=== PATIENT | female | born 1990 | race Caucasian/White ===

== ENCOUNTER 2017-06-13 15:08 | Emergency (ER) | payer SELFPAY | END 2017-06-13 15:32 | disposition left against medical advice (07) | LOC: PHED 15:08 | DX: R51 Headache (principal); Z53.21 Procedure and treatment not carried out due to patient leaving prior to being seen by health care provider | CPT/HCPCS: 99281 ==

== ENCOUNTER 2018-03-22 08:30 | Inpatient (IN) ==
[2018-03-22] MEDS ORDERED: ceFAZolin 2 GM Premix Inj 2 GM/50 ML PIGGYBACK IV.SIG PRN (08:48)
--- NOTE | 2018-03-22 08:58 | P.HPOB ---
Chief Complaint: I am here for a History of Present Illness: 27-year-old final EDC 04/04/2018 at 38 weeks presents for due to persistent breech and oligohydramnios. Late onset of care in the third trimester. care with Dr. Terrazas. Persistent breech presentation by ultrasound grade 3 placenta and to date patient has not had RhoGam. Past OB history denies Past COREMAKER HELPER history denies Past medical history bipolar Previous tobaccoism Allergies Lamictal and Depakote Past surgical history denies Weeks Gestation:: 38 Para: 0 : 1 Review of Systems All other systems reviewed negative except as stated in HPI Exam Narrative: GENERAL: Well-nourished, well-developed patient. SKIN: Warm and dry. HEAD: Normocephalic and atraumatic. EYES: No scleral icterus. No injection or drainage. ENT: No nasal drainage noted. Mucous membranes pink. Airway patent. NECK: Supple, trachea midline. No JVD. CARDIOVASCULAR: Regular rate and rhythm without murmurs, gallops, or rubs. RESPIRATORY: Breath sounds equal bilaterally. No accessory muscle use. BREASTS: Bilateral exam showed no masses , no retractions, no nipple discharge. ABDOMEN/GI: Abdomen soft, non-tender, bowel sounds present, no rebound, no guarding Gravid to 38 weeks size Fundal Height: 36 GENITOURINARY: cx post 1/thick/high/breech confirmed by US FHT's: 135 reactive NST Reports good movement EXTREMITIES: No cyanosis or edema. BACK: Nontender without obvious deformity. No CVA tenderness. NEUROLOGICAL: Awake and alert. Motor and sensory grossly within normal limits. Five out of 5 muscle strength in all muscle groups. Normal speech. Assessment and Plan - Diagnosis (1) Breech presentation Code(s): O32.1XX0 - Maternal care for breech presentation, not applicable or unspecified Status: Acute (2) consult Code(s): Z71.89 - Other specified counseling Status: Acute (3) 38 weeks gestation of Code(s): Z3A.36 - 36 weeks gestation of Status: Acute - Plan Scheduled for delivery March 22, 2018 at 10:30 AM alternatives benefits complications discussed including but not limited to risk of permanent injury to the bowel bladder nerves blood vessels ureters any structures in the abdomen or pelvis infection hemorrhage morbidity mortality related to surgery and/or anesthesia related procedures, even the remote possibility of . Maternal injury , injury complications associated with such discussed in depth. Patient expressed verbal understanding she was also made aware of the preop expectations Intra-Op and postop. Patient given written instruction as well
[2018-03-22] MEDS ORDERED: Citric Acid/Sodium Citrate Liq 30 ML UDC PO SCH (09:00)
[2018-03-22 09:45] LABS: Baso % (Auto) 0.4 % (0.0-2.0); Eos # (Auto) 0.2 th/mm3 (0.0-0.4); Eos % (Auto) 1.3 % (0.0-4.0); Hemoglobin 11.5 gm/dL (11.6-15.3); Lymph # (Auto) 1.5 th/mm3 (1.0-4.8); Lymph % (Auto) 12.1 % (9.0-44.0); Mean Corpuscular HGB Conc 33.9 % (32.0-36.0); Mean Corpuscular Hemoglobin 30.3 pg (27.0-34.0); Mean Corpuscular Volume 89.4 fL (80.0-100.0); Mean Platelet Volume 8.4 fL (7.0-11.0); Mono # (Auto) 0.7 th/mm3 (0.0-0.9); Mono % (Auto) 5.6 % (0.0-8.0); Neut # (Auto) 9.7 th/mm3 (1.8-7.7); Neut % (Auto) 80.6 % (16.0-70.0); Platelet Count 268 th/mm3 (150-450); Red Blood Count 3.81 mil/mm3 (4.00-5.30); Red Cell Distribution Width 14.1 % (11.6-17.2)
[2018-03-22] MEDS ORDERED: Morphine Sulfate PF Inj 5 MG/10 ML Ampul ONE (09:46)
[2018-03-22 09:55] LABS: Bacteria,Urine Rare /hpf; Bilirubin,Urine Negative (Negative); Clarity,Urine Hazy (Clear); Color,Urine Yellow (Yellw/Straw); Glucose,Urine (UA) Negative (Negative); Leukocyte Esterase,Urine Negative (Negative); Mucus,Urine Few /lpf (Occasional); Nitrite,Urine Negative (Negative); Specific Gravity,Urine 1.015 (1.002-1.035); Squamous Epithelial Cell,Urine 1 /hpf (0-5)
[2018-03-22] MEDS ORDERED: Acetaminophen 325 MG Tablet PO PRN (11:36)
[2018-03-22] MEDS ORDERED: fentaNYL Citrate Inj 100 MCG/2 ML Ampul ONE ×2 (11:48)
--- NOTE | 2018-03-22 11:51 | P.OP ---
- Preoperative Diagnosis (1) Breech presentation (2) 38 weeks gestation of (3) Oligohydramnios Date of procedure: 03/22/19 Procedure: Procedure: Primary LTCS via pfannanstiel incision Preop diagnosis: at 38 1/7wks, Breech, Oligo ERVIN 4.92, Late PNC, RH negative Post Op Diagnosis: same Findings: VFI, apgars 8/8, BW 6lb. 14oz., Orlin Breech Complications: bleeding abrasion/laceration on the uterine serosa Indication: At the routine OB visit on 03/18 patient was found to have an ERVIN of 4.92 and Breech presentation. It was then determined that a primary section would be scheduled for well-being. Patient was advised of the risks of surgery including but not limited to visceral and vascular injury, infection, blood loss and need for transfusion, prolonged hospitalization, and reoperation. The Patient desired to proceed, all questions were answered and consents were signed. Procedure: Patient was taken to the OR with IV fluids running, Ancef was given for infection prophylaxis. Patient was prepped and draped in the dorsal supine position with a leftward tilt. Spinal anesthesia was found to be adequate. A Pfannenstiel incision was made with a scalpel, the incision was followed down to the fascia with the scalpel. The fascia was incised bluntly and extended laterally. Carlos A clamps were used to grasp the anterior aspect of the fascia and the scalpel was used to dissect the fascia off of the muscles. In a similar fashion the inferior aspect of the fascia was grasped with Carlos A clamps and the fascia was dissected bluntly off of the muscles. The rectus muscle was in the midline down to the pubic symphysis. The peritoneal cavity was entered bluntly with no adherent bowel and clear fluid noted. The bladder blade was inserted and the bladder flap was created. The bladder blade was then repositioned to keep bladder out of the operative field. A transverse incision was made in the lower uterine segment with the scalpel with no amniotic fluid noted, the incision was extended bluntly with lateral and upward traction. The infant was in orlin breech presentation and delivered in normal breech fashion ( the hips were delivered first followed by delivery of the trunk, the baby was then rotated with delivery of the right shoulder then delivery of the left shoulder, the head was then flexed the head by putting pressure on the mandible and the head was delivered without difficulty). The cord was clamped and cut after delayed cord clamping for 45 seconds. The was handed off to the pediatric team. The placenta was delivered with manual extraction. A moist lap sponge was used to remove any remaining placental debris. The uterine incision was closed with 1-[address] a CT in a running locked fashion. Dr. Westbrook took over the case at this point to assist with closure. An abrasion/laceration was found to be bleeding on the anterior uterus , in the serosa and inferior to the fundus, chromic suture was used for hemostasis. A second imbricated layer closure was performed on the uterine incision to decrease the risk of future uterine rupture with 1-[address] in a running fashion. The uterine incision as well as the uterine abrasion was noted to have good hemostasis. The uterus, fallopian tubes, and ovaries were noted to be normal and placed back into the abdominal cavity. Upon reinspection good hemostasis of the uterine incision and the previous abrasion was once again noted. Interceed was placed over the abrasion on the serosa. The fascia was closed with 1-[address] in a running fashion. The skin was closed with 3-0 Monocryl on a Dusty in a subcuticular fashion. A pressure dressing was placed over the skin incision. The patient tolerated the procedure well, all counts were correct x2. The patient was taken to recovery in stable condition. Anesthesia: spinal Surgeon: MD Dr. Ansley Boss Estimated blood loss (mL): 700 IV fluids (mL): 2,000 Urine output (mL): 300 (clear)
[2018-03-22] MEDS ORDERED: Oxytocin 30 Units/500ml Premix 30 UNITS/500 ML BAG IV.SIG ONE (12:00)
[2018-03-22] MEDS ORDERED: Oxytocin 30 Units/500ml Premix 30 UNITS/500 ML BAG ONE (12:46)
[2018-03-22] MEDS ORDERED: Oxytocin 30 Units/500ml Premix 30 UNITS/500 ML BAG IV.SIG PRN (16:36)
--- NOTE | 2018-03-22 18:38 | US ---
EXAM DATE: 03/22/2018 6:36 PM EST AGE/SEX: 27 years / Female INDICATIONS: Right leg pain and swelling. CLINICAL DATA: This is the patient's initial encounter. Patient reports that signs and symptoms have been present for 1 day and indicates a pain score of 1/10. MEDICAL/SURGICAL HISTORY: . Right leg swelling. None. COMPARISON: No prior exams available for comparison. TECHNIQUE: Venous ultrasound of both lower extremities was performed from the inguinal ligament to t he proximal calf. Real-time, color Doppler and spectral tracing, compression and augmentation techni ques were used. FINDINGS: Normal compression of the deep venous system from the inguinal region to the proximal calf . No echogenic clot is seen. Normal response of the venous system to augmentation and respiration. CONCLUSION: 1. Negative exam with no evidence of deep venous thrombosis. Electronically signed by: Gagandeep Phelps MD Board Certified Radiologist 03/22/2018 6:37 PM EST
--- NOTE | 2018-03-22 19:44 | P.OBGPN ---
Doppler negative for DVT
[2018-03-22] MEDS: Senna/Docusate Sodium 8.6/50 MG Tablet PO PRN (22:06)
[2018-03-23 05:55] LABS: Baso % (Auto) 0.3 % (0.0-2.0); Eos % (Auto) 0.3 % (0.0-4.0); Hematocrit 28.9 % (35.0-46.0); Hemoglobin 9.9 gm/dL (11.6-15.3); Lymph # (Auto) 1.3 th/mm3 (1.0-4.8); Lymph % (Auto) 9.1 % (9.0-44.0); Mean Corpuscular HGB Conc 34.1 % (32.0-36.0); Mean Corpuscular Hemoglobin 30.7 pg (27.0-34.0); Mean Corpuscular Volume 89.9 fL (80.0-100.0); Mean Platelet Volume 8.4 fL (7.0-11.0); Mono # (Auto) 0.7 th/mm3 (0.0-0.9); Mono % (Auto) 4.8 % (0.0-8.0); Neut # (Auto) 12.1 th/mm3 (1.8-7.7); Neut % (Auto) 85.5 % (16.0-70.0); Platelet Count 229 th/mm3 (150-450); Red Blood Count 3.22 mil/mm3 (4.00-5.30); Red Cell Distribution Width 14.3 % (11.6-17.2); White Blood Count 14.2 th/mm3 (4.0-11.0)
--- NOTE | 2018-03-23 08:46 | P.PNOB ---
Subjective Post op day: 1 Interval history: Patient is a 27-year-old G 1 P 1 delivered at 38 weeks. Patient is day 1 after section due to breech and oligohydramnios. Patient's reports incisional pain today. Patient reports eating and drinking without any nausea or vomiting. Patient reports minimal bleeding. Patient has passed gas but no bowel movements. Patient is walking without lower extremity pain or shortness of breath but does have incisional pain when standing. Objective Vital Signs/I&O: Vital Signs 03/22/18 08:56 03/22/18 08:57 03/22/18 11:45 Temperature 99.1 F 97.7 F Pulse Rate 92 H 75 Respiratory Rate 18 18 Blood Pressure 132/71 131/72 03/22/18 11:59 03/22/18 12:15 03/22/18 12:30 Temperature Pulse Rate 70 81 79 Respiratory Rate 17 18 Blood Pressure 137/56 L 128/68 129/77 03/22/18 13:15 03/22/18 13:30 03/22/18 16:00 Temperature 98.0 F 98.3 F 98.1 F Pulse Rate 85 88 92 H Respiratory Rate 16 18 18 Blood Pressure 119/73 138/76 137/71 03/22/18 20:00 03/23/18 00:00 03/23/18 04:00 Temperature 98.1 F 98.3 F 98.4 F Pulse Rate 68 81 95 H Respiratory Rate 18 18 20 Blood Pressure 124/65 135/61 138/82 03/23/18 08:00 Temperature 97.6 F Pulse Rate 90 Respiratory Rate 16 Blood Pressure 127/69 Intake & Output 03/22/18 03/23/18 03/23/18 18:59 06:59 18:59 Weight 81.739 kg Other: Weight On Admission 82.024 kg Result Diagrams: 03/23/18 04:37 Objective Remarks: GENERAL: Well-nourished, well-developed patient. CARDIOVASCULAR: Regular rate and rhythm without murmurs, gallops, or rubs. RESPIRATORY: Breath sounds equal bilaterally. No accessory muscle use. ABDOMEN/GI: Abdomen soft, mildly tender, bowel sounds present. Incision: Clean, dry and intact. Fundus: Firm, mildly tender at umbilicus. GENITOURINARY: Light to moderate bleeding. EXTREMITIES: Mild pedal edema on the right. No cyanosis, non-tender, without signs of DVT. Medications and IVs: Active Medications Acetaminophen (Tylenol) 650 mg PO Q6H PRN PRN Reason: PAIN SCALE 1 TO 2 Citric Acid/Sodium Citrate (Sodium Citrate/Citric Acid Liq) 30 ml PO [employer] [facility] Stop: 03/26/18 08:59 Diphtheria/Pertussis/Tetanus Vacc (Boostrix Vaccine Inj) 0.5 ml IM .ONCE ONE Stop: 03/23/18 16:01 Cefazolin Sodium/Dextrose (Ancef 2 Gm Premix Inj) 2 gm in 50 mls @ 100 mls/hr IV.SIG [employer] PRN PRN Reason: ON-CALL Stop: 03/26/18 08:47 Lactated Ringer's (Lr 1000 Ml Inj) 1,000 mls @ 100 mls/hr IV.CONT .Q10H [facility] Stop: 03/23/18 12:35 Oxytocin (Pitocin 30 Units/Ns 500 Ml Premix) 30 units in 500 mls @ 100 mls/hr IV.SIG UNSCH PRN PRN Reason: Heavy bleeding Measles/Mumps/Rubella Vaccine Live (M-M-R Ii Vaccine Inj) 0.5 ml SQ .ONCE ONE Stop: 03/23/18 16:01 Ondansetron HCl (Zofran Inj) 4 mg IV.PUSH Q6H PRN PRN Reason: NAUSEA OR VOMITING Oxycodone/Acetaminophen (Percocet 5/325 Mg) 1 tab PO Q4H PRN PRN Reason: PAIN SCALE 3 TO 5 Oxycodone/Acetaminophen (Percocet 5/325 Mg) 2 tab PO Q4H PRN PRN Reason: PAIN SCALE 6 TO 10 Last Admin: 03/23/18 08:19 Dose: 2 tab Senna/Docusate Sodium (Mady-Colace) 2 tab PO Q12H PRN PRN Reason: CONSTIPATION Last Admin: 03/22/18 22:06 Dose: 2 tab Sodium Chloride (Ns Flush) 2 ml IV.FLUSH BID ELIZA Last Admin: 03/22/18 22:06 Dose: Not Given Sodium Chloride (Ns Flush) 2 ml IV.FLUSH UNSCH PRN PRN Reason: FLUSH AFTER USING IV ACCESS Assessment and Plan - Diagnosis (1) Normal course Code(s): Z39.2 - Encounter for routine follow-up Status: Acute - Plan Patient is a 27-year-old G 1 P 1 delivered at 38 weeks. Patient is day 1 after section due to breech and oligohydramnios. Patient was counseled to do 6 weeks of pelvic rest. Patient requested follow-up and contraception. --AF VSS --Hemoglobin stable at 9.9 from 11.5 yesterday. --Continue routine care --Motrin and Percocet when necessary for pain --Encourage OOB --Pelvic rest for 6 weeks will need follow-up appointment at that time. --Anticipate discharge
--- NOTE | 2018-03-23 08:47 | P.OBGPN ---
LATE ENTRY: Resident team notified the afternoon of 03/22 by RN who reported that the patient had a noticeably edematous right leg. The leg was not painful or erythematous. The left leg was normal in size and color. The patient had normal vital signs. Due to the patient recently having section earlier that morning, a right LE US was ordered to R/O DVT. The LE US was negative for DVT.
[2018-03-23] MEDS ORDERED: Diphtheria/Tetanus/Pertussis Vaccine Inj 0.5 ML Syringe IM ONE (16:00)
[2018-03-23] MEDS ORDERED: Measles/Mumps/Rubella Vaccine Inj 0.5 ML Vial SQ ONE (16:00)
[2018-03-23] MEDS: Senna/Docusate Sodium 8.6/50 MG Tablet PO PRN (20:09)
--- NOTE | 2018-03-24 09:00 | P.PNOB ---
Subjective Post op day: 2 Interval history: Patient is a 27-year-old G 1 P 1 delivered at 38 weeks. Patient is day 2 after section due to breech and oligohydramnios. Patient's reports incisional pain today a 12/14. Patient reports eating and drinking without any nausea or vomiting. Patient reports minimal bleeding. Patient has passed gas but no bowel movements. Patient is walking without lower extremity pain or shortness of breath. Objective Vital Signs/I&O: Vital Signs 03/23/18 12:00 03/23/18 17:15 03/23/18 20:00 Temperature 98.1 F 98.5 F 98.1 F Pulse Rate 82 85 111 H Respiratory Rate 18 Blood Pressure 93/57 L 131/68 131/78 03/24/18 08:00 Temperature 97.6 F Pulse Rate 87 Respiratory Rate 8 L Blood Pressure 126/55 L Intake & Output 03/23/18 03/24/18 03/24/18 18:59 06:59 18:59 Intake Total Balance Intake: Intake (Blood Product) Amt Rho(D) Immune Globulin Unit [id number] Result Diagrams: 03/23/18 04:37 Objective Remarks: GENERAL: Well-nourished, well-developed patient. CARDIOVASCULAR: Regular rate and rhythm without murmurs, gallops, or rubs. RESPIRATORY: Breath sounds equal bilaterally. No accessory muscle use. ABDOMEN/GI: Abdomen soft, non-tender, bowel sounds present. Incision: Clean, dry and intact, steri strips in place. Fundus: Firm, non-tender at umbilicus. GENITOURINARY: Light to moderate bleeding. EXTREMITIES: No cyanosis or edema, non-tender, without signs of DVT. Medications and IVs: Active Medications Acetaminophen (Tylenol) 650 mg PO Q6H PRN PRN Reason: PAIN SCALE 1 TO 2 Citric Acid/Sodium Citrate (Sodium Citrate/Citric Acid Liq) 30 ml PO METER TESTER PRIMARY ELIZA Stop: 03/26/18 08:59 Cefazolin Sodium/Dextrose (Ancef 2 Gm Premix Inj) 2 gm in 50 mls @ 100 mls/hr IV.SIG METER TESTER PRIMARY PRN PRN Reason: ON-CALL Stop: 03/26/18 08:47 Oxytocin (Pitocin 30 Units/Ns 500 Ml Premix) 30 units in 500 mls @ 100 mls/hr IV.SIG UNSCH PRN PRN Reason: Heavy bleeding Ondansetron HCl (Zofran Inj) 4 mg IV.PUSH Q6H PRN PRN Reason: NAUSEA OR VOMITING Oxycodone/Acetaminophen (Percocet 5/325 Mg) 1 tab PO Q4H PRN PRN Reason: PAIN SCALE 3 TO 5 Oxycodone/Acetaminophen (Percocet 5/325 Mg) 2 tab PO Q4H PRN PRN Reason: PAIN SCALE 6 TO 10 Last Admin: 03/24/18 08:55 Dose: 2 tab Senna/Docusate Sodium (Mady-Colace) 2 tab PO Q12H PRN PRN Reason: CONSTIPATION Last Admin: 03/23/18 20:09 Dose: 2 tab Sodium Chloride (Ns Flush) 2 ml IV.FLUSH BID ELIZA Last Admin: 03/23/18 22:21 Dose: Not Given Sodium Chloride (Ns Flush) 2 ml IV.FLUSH UNSCH PRN PRN Reason: FLUSH AFTER USING IV ACCESS Assessment and Plan - Diagnosis (1) Normal course Code(s): Z39.2 - Encounter for routine follow-up Status: Acute - Plan Patient is a 27-year-old G 1 P 1 delivered at 38 weeks. Patient is day 2 after section due to breech and oligohydramnios. Patient was counseled to do 6 weeks of pelvic rest. Patient requested follow-up and contraception. --AF VSS --Continue routine care --Motrin and Percocet when necessary for pain --Encourage OOB --Pelvic rest for 6 weeks will need follow-up appointment at that time. --Patient is interested in the depot shot today. --Anticipate discharge tomorrow
[2018-03-24] MEDS ORDERED: medroxyPROGESTERone Acetate Inj 150 MG/ML Syringe IM ONE (11:15)
[2018-03-24 21:16] VITALS: RESP 18
[2018-03-25 08:19] VITALS: BP 117/86; PULSE 98; TEMP 98.5
--- NOTE | 2018-03-25 08:30 | P.PNOB ---
Objective Vital Signs/I&O: Vital Signs 03/24/18 20:00 03/25/18 08:00 Temperature 98.0 F 98.5 F Pulse Rate 67 98 H Respiratory Rate 18 18 Blood Pressure 112/59 L 117/86 Result Diagrams: 03/23/18 04:37 Objective Remarks: GENERAL: Well-nourished, well-developed patient. CARDIOVASCULAR: Regular rate and rhythm without murmurs, gallops, or rubs. RESPIRATORY: Breath sounds equal bilaterally. No accessory muscle use. ABDOMEN/GI: Abdomen soft, non-tender. Fundus: Firm, non-tender at umbilicus. GENITOURINARY: Light to moderate bleeding. EXTREMITIES: No cyanosis or edema, non-tender, without signs of DVT. Medications and IVs: Active Medications Acetaminophen (Tylenol) 650 mg PO Q6H PRN PRN Reason: PAIN SCALE 1 TO 2 Citric Acid/Sodium Citrate (Sodium Citrate/Citric Acid Liq) 30 ml PO SENIOR CYTOTECHNOLOGIST [facility] Stop: 03/26/18 08:59 Cefazolin Sodium/Dextrose (Ancef 2 Gm Premix Inj) 2 gm in 50 mls @ 100 mls/hr IV.SIG SENIOR CYTOTECHNOLOGIST PRN PRN Reason: ON-CALL Stop: 03/26/18 08:47 Oxytocin (Pitocin 30 Units/Ns 500 Ml Premix) 30 units in 500 mls @ 100 mls/hr IV.SIG UNSCH PRN PRN Reason: Heavy bleeding Ibuprofen (Motrin) 800 mg PO Q6H PRN PRN Reason: PAIN SCALE 1 TO 10 Last Admin: 03/25/18 07:25 Dose: 800 mg Ondansetron HCl (Zofran Inj) 4 mg IV.PUSH Q6H PRN PRN Reason: NAUSEA OR VOMITING Oxycodone/Acetaminophen (Percocet 5/325 Mg) 1 tab PO Q4H PRN PRN Reason: PAIN SCALE 3 TO 5 Oxycodone/Acetaminophen (Percocet 5/325 Mg) 2 tab PO Q4H PRN PRN Reason: PAIN SCALE 6 TO 10 Last Admin: 03/25/18 07:25 Dose: 2 tab Senna/Docusate Sodium (Mady-Colace) 2 tab PO Q12H PRN PRN Reason: CONSTIPATION Last Admin: 03/23/18 20:09 Dose: 2 tab Sodium Chloride (Ns Flush) 2 ml IV.FLUSH BID [facility] Last Admin: 03/25/18 01:53 Dose: Not Given Sodium Chloride (Ns Flush) 2 ml IV.FLUSH UNSCH PRN PRN Reason: FLUSH AFTER USING IV ACCESS Assessment and Plan - Diagnosis (1) Normal course Code(s): Z39.2 - Encounter for routine follow-up Status: Acute - Plan Patient is a 27-year-old G 1 P 1 delivered at 38 weeks. Patient is day 2 after section due to breech and oligohydramnios. Patient was counseled to do 6 weeks of pelvic rest. Patient requested follow-up and contraception. --AF VSS --Continue routine care --Motrin and Percocet when necessary for pain --Encourage OOB --Pelvic rest for 6 weeks will need follow-up appointment at that time. --Patient is interested in the depot shot today. --Anticipate discharge tomorrow
--- NOTE | 2018-03-25 10:05 | P.PNOB ---
Subjective Post op day: 3 Interval history: Patient is a 27-year-old G 1 P 1 delivered at 38 weeks. Patient is day 3 after section due to breech and oligohydramnios. Patient's reports incisional pain today a 9/10 today but she has not had any percocet since last evening. Patient reports eating and drinking without any nausea or vomiting. Patient reports minimal bleeding. Patient has passed gas but no bowel movements. Patient is walking without lower extremity pain or shortness of breath. Objective Vital Signs/I&O: Vital Signs 03/24/18 20:00 03/25/18 08:00 Temperature 98.0 F 98.5 F Pulse Rate 67 98 H Respiratory Rate 18 18 Blood Pressure 112/59 L 117/86 Result Diagrams: 03/23/18 04:37 Objective Remarks: GENERAL: Well-nourished, well-developed patient. CARDIOVASCULAR: Regular rate and rhythm without murmurs, gallops, or rubs. RESPIRATORY: Breath sounds equal bilaterally. No accessory muscle use. ABDOMEN/GI: Abdomen soft, non-tender, bowel sounds present. Incision: Clean, dry and intact. Fundus: Firm, non-tender at umbilicus. GENITOURINARY: Light to moderate bleeding. EXTREMITIES: No cyanosis or edema, non-tender, without signs of DVT. Medications and IVs: Active Medications Acetaminophen (Tylenol) 650 mg PO Q6H PRN PRN Reason: PAIN SCALE 1 TO 2 Citric Acid/Sodium Citrate (Sodium Citrate/Citric Acid Liq) 30 ml PO SURGICAL TECHNOLOGY INSTRUCTOR [facility] Stop: 03/26/18 08:59 Cefazolin Sodium/Dextrose (Ancef 2 Gm Premix Inj) 2 gm in 50 mls @ 100 mls/hr IV.SIG SURGICAL TECHNOLOGY INSTRUCTOR PRN PRN Reason: ON-CALL Stop: 03/26/18 08:47 Oxytocin (Pitocin 30 Units/Ns 500 Ml Premix) 30 units in 500 mls @ 100 mls/hr IV.SIG UNSCH PRN PRN Reason: Heavy bleeding Ibuprofen (Motrin) 800 mg PO Q6H PRN PRN Reason: PAIN SCALE 1 TO 10 Last Admin: 03/25/18 07:25 Dose: 800 mg Ondansetron HCl (Zofran Inj) 4 mg IV.PUSH Q6H PRN PRN Reason: NAUSEA OR VOMITING Oxycodone/Acetaminophen (Percocet 5/325 Mg) 1 tab PO Q4H PRN PRN Reason: PAIN SCALE 3 TO 5 Oxycodone/Acetaminophen (Percocet 5/325 Mg) 2 tab PO Q4H PRN PRN Reason: PAIN SCALE 6 TO 10 Last Admin: 03/25/18 07:25 Dose: 2 tab Senna/Docusate Sodium (Mady-Colace) 2 tab PO Q12H PRN PRN Reason: CONSTIPATION Last Admin: 03/23/18 20:09 Dose: 2 tab Sodium Chloride (Ns Flush) 2 ml IV.FLUSH BID ELIZA Last Admin: 03/25/18 01:53 Dose: Not Given Sodium Chloride (Ns Flush) 2 ml IV.FLUSH UNSCH PRN PRN Reason: FLUSH AFTER USING IV ACCESS Assessment and Plan - Diagnosis (1) Normal course Code(s): Z39.2 - Encounter for routine follow-up Status: Acute - Plan Patient is a 27-year-old G 1 P 1 delivered at 38 weeks. Patient is day 3 after section due to breech and oligohydramnios. Patient was counseled to do 6 weeks of pelvic rest. Patient requested follow-up and contraception. --AF VSS --Continue routine care --Motrin and Percocet when necessary for pain --Encourage OOB --Pelvic rest for 6 weeks will need follow-up appointment at that time. --Patient will be administered depot shot today before discharge. --Discharge today
[2018-03-25] MEDS ORDERED: medroxyPROGESTERone Acetate Inj 150 MG/ML Syringe IM ONE (12:00)
[2018-03-25] MEDS ORDERED: Measles/Mumps/Rubella Vaccine Inj 0.5 ML Vial SQ ONE (12:00)
== END 2018-03-25 15:41 | disposition home or self-care (01) ==
LOC: H2E 08:30 → H1EA 13:04
PROVIDERS: ADMIT Obstetrics & Gynecology; ATTEND Obstetrics & Gynecology